=== PATIENT | female | born 1995 | race Caucasian/White ===

== ENCOUNTER 2019-09-07 19:14 | Emergency (ER) | payer OTHER, MEDICAID ==
[2019-09-07] MEDS ORDERED: Sodium Chloride 0.9% 1,000 ML IV ONE (19:22)
[2019-09-07] MEDS ORDERED: Bacitracin Oint 1 GM U/D Packet TOP ONE (19:22)
[2019-09-07] MEDS ORDERED: Diphtheria,Pertussis(Acell),Tetanus Vaccine 0.5 ML Syringe IM ONE (19:22)
[2019-09-07] MEDS ORDERED: Sodium Chloride 0.9% 10 ML Syringe FLUSH PRN (19:23)
[2019-09-07] MEDS ORDERED: Sodium Chloride 0.9% 2.5 ML Syringe FLUSH PRN (19:23)
[2019-09-07] MEDS ORDERED: Iopamidol 755 Mg/ML 100 ML Bottle IVPUSH ONE (19:27)
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
[2019-09-07 20:18] LABS: BLOOD UREA NITROGEN,BUN 13 mg/dL (7.0-18.0); CARBON DIOXIDE,CO2 26.4 mmol/L (21.0-32.0); CHLORIDE,CL 104 mmol/L (98-107); GLUCOSE RANDOM 103 mg/dL (74-106); LIPASE 130 U/L (73-393); POTASSIUM,K 3.8 mmol/L (3.5-5.1); SODIUM,NA 140 mmol/L (136-145)
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
[2019-09-07] MEDS ORDERED: Ketorolac 30 MG/ML SDV IVPUSH ONE (20:57)
== END 2019-09-08 00:16 | disposition home or self-care (01) ==
LOC: MW.ED 19:14
DX: S22.42XA Multiple fractures of ribs, left side, initial encounter for closed fracture (principal); S01.81XA Laceration without foreign body of other part of head, initial encounter; S61.411A Laceration without foreign body of right hand, initial encounter; S61.412A Laceration without foreign body of left hand, initial encounter; S70.11XA Contusion of right thigh, initial encounter; S70.12XA Contusion of left thigh, initial encounter; S80.01XA Contusion of right knee, initial encounter; S80.02XA Contusion of left knee, initial encounter; Z23 Encounter for immunization; V43.53XA Car driver injured in collision with pick-up truck in traffic accident, initial encounter
CPT/HCPCS: 70450; 71260; 72125; 72128; 72131; 73551; 73562; 73590; 74177; 80053; 80305; 80320; 81003; 81025; 83690; 84484; 85025; 85610; 90471; 90715; 93005; 96361; 96374; 99285; J1885; J7030; Q9967; G0480